=== PATIENT | male | born 1995 ===

== ENCOUNTER 2016-11-10 14:39 | Emergency (ER) | payer MEDICAID ==
[2016-11-10 14:58] VITALS: TEMP 98.3
--- NOTE | 2016-11-10 15:49 | C.PDOC ---
History Of Present Illness 21 year old patient presents to the emergency department complaining of a laceration to the right 2nd finger since yesterday at 2pm. Patient states he was holding a drinking glass, tripped, and squeezed the glass causing it to break in his hand. He was fine at the time, but his mother wanted evaluation. Patient is right hand dominant and reports decreased sensation to the tip of the finger. Patient denies any other trauma, injuries or fever. Time Seen by Provider: 11/10/16 15:08 Chief Complaint (Nursing): Abnormal Skin Integrity History Per: Patient History/Exam Limitations: no limitations Onset/Duration Of Symptoms: Days (2-3) Current Symptoms Are (Timing): Still Present Quality Of Symptoms: Painful, Other Severity: Moderate Pain Scale Rating Of: 4 Recent travel outside of the [place]: No Past Medical History Reviewed: Historical Data, Nursing Documentation, Vital Signs Vital Signs: Last Vital Signs Temp 98.3 F 11/10/16 14:53 Pulse 68 11/10/16 15:56 Resp 20 11/10/16 15:56 BP 110/70 11/10/16 15:56 Pulse Ox 99 11/10/16 20:40 - [facility] Procedures TONSILLECTOMY/ADENOIDEC (11/13/00) Family History: States: Unknown Family Hx - Social History Hx Alcohol Use: Yes Hx Substance Use: No - Immunization History Hx Tetanus Toxoid Vaccination: No Hx Influenza Vaccination: No Hx Pneumococcal Vaccination: No Review Of Systems Except As Marked, All Systems Reviewed And Found Negative. Constitutional: Negative for: Fever Skin: Positive for: Other (laceration to right 2nd finger) Neurological: Positive for: Numbness (tip of right 2nd finger) Physical Exam - Physical Exam Appears: Non-toxic, No Acute Distress Skin: Warm, Dry, Other (3 cm laceration to the right 2nd finger with white healing edges; (+)decreased sensation at the tip of the finger tip (-)active bleeding (-)gaping (-)discharge (-)surrounding erythema (+)not able to be approximated) Head: Atraumatic, Normacephalic Eye(s): bilateral: Normal Inspection, EOMI Oral Mucosa: Moist Neck: Normal ROM, Supple Chest: Symmetrical Respiratory: No Accessory Muscle Use Back: CVA Tenderness Extremity: No Normal ROM (decreased secondary to pain), Tenderness, Capillary Refill (< 2 sec), Swelling (mild) Pulses: Left Radial: Normal, Right Radial: Normal Neurological/Psych: Oriented x3, Normal Speech ED Course And Treatment O2 Sat by Pulse Oximetry: 99 (RA) Pulse Ox Interpretation: Normal Progress Note: Plan: -Keflex, Adacel. -Reassess and disposition. Progress: Wound was cleaned and dressed. Steri strips were applied. Discussed risks and benefits with patient of delayed wound closure. Patient has 5/5 strength against resistance. Wound appears superficial and no signs of infection. No signs of tendon involvement. Concern for nerve involvment secondary to reported decreased sensation. Instructed to follow up with hand specialist in 1-2 days for further evaluation and wound check. Laceration - Laceration Repair right 2nd finger Wound Length (In cm): 3 Description Of Wound: Linear, Clean Wound Cleansed With: Betadine, Sterile Saline Wound Examination: Irrigated With Saline, No FB With Wound Exploration, No Tendon Injury With Wound Exploration Wound Closure: Steri Strips Wound Complexity: Simple Disposition - Disposition Referrals: Cholo Hauser MD [Provisional Staff] - Disposition: HOME/ ROUTINE Disposition Time: 15:46 Condition: STABLE Additional Instructions: Watch for signs of infection including redness, swelling and discharge. Follow up with hand specialist in 1-2 days. Prescriptions: Cephalexin [cephalexin] 500 mg PO BID #14 cap Instructions: Acute Wound Care (ED) - Clinical Impression Clinical Impression: Finger laceration - PA / [employer] / Resident Statement MD/DO has reviewed & agrees with the documentation as recorded. - Scribe Statement The provider has reviewed the documentation as recorded by the Scribe Tabitha Herrera All medical record entries made by the Scribe were at my direction and personally dictated by me. I have reviewed the chart and agree that the record accurately reflects my personal performance of the history, physical exam, medical decision making, and the department course for this patient. I have also personally directed, reviewed, and agree with the discharge instructions and disposition.
[2016-11-10 15:57] VITALS: BP 110/70; PULSE 68; RESP 20
[2016-11-10 19:07] VITALS: O2SAT 99
== END 2016-11-10 15:57 | disposition home or self-care (01) ==
LOC: C.ER 14:39
DX: S61.210A Laceration without foreign body of right index finger without damage to nail, initial encounter (principal); W25.XXXA Contact with sharp glass, initial encounter; Y93.89 Activity, other specified; Y92.009 Unspecified place in unspecified non-institutional (private) residence as the place of occurrence of the external cause